=== PATIENT | female | born 1945 | race Caucasian/White ===

== ENCOUNTER → 2017-06-07 | Outpatient (CLI) | payer MEDICARE | LOC: M WHC 10:25 | DX: Z12.31 Encounter for screening mammogram for malignant neoplasm of breast (principal); Z78.0 Asymptomatic menopausal state; Z80.3 Family history of malignant neoplasm of breast | CPT/HCPCS: 77067 ==

== ENCOUNTER → 2018-02-15 | Outpatient (CLI) | payer MEDICARE ==
[2018-02-15 15:10] LABS: ALBUMIN 3.6 GM/DL (3.2-5.2); ALBUMIN/GLOBULIN RATIO 0.92 (1.00-1.93); ALKALINE PHOSPHATASE 114 U/L (45-117); ALT/SGPT 171 U/L (12-78); AST/SGOT 112 U/L (7-37); BILIRUBIN,DIRECT 0.2 MG/DL (0.0-0.2); BILIRUBIN,TOTAL 0.5 MG/DL (0.2-1.0); FERRITIN 166 NG/ML (8-252); HEPATITIS B SURFACE ANTIBODY NEGATIVE (POSITIVE); HEPATITIS B SURFACE ANTIGEN NEGATIVE (NEGATIVE); IRON (FE) 72 UG/DL (50-170); PERCENT SATURATION 19.8 % (13.2-45.0); TOTAL IRON BINDING CAPACITY 363 UG/DL (250-450); TOTAL PROTEIN 7.5 GM/DL (6.4-8.2)
[2018-02-15 15:10] LABS: HEPATITIS C VIRUS ABY INDEX 0.1 INDEX (<0.8)
[2018-02-18 14:14] LABS: ALPHA 2-MACROGLOBULINS,QN 287 mg/dL (110-276); ALT (SGPT) P5P 177 IU/L (0-40); ANTI-MITOCHONDRIAL ANTIBODY 3.8 Units (0.0-20.0); ANTINUCLEAR ANTIBODIES DIRECT Negative (Negative); APOLIPOPROTEIN A-1 181 mg/dL (116-209); AST (SGOT) P5P 133 IU/L (0-40); BILIRUBIN, TOTAL 0.4 mg/dL (0.0-1.2); CHOLESTEROL TOTAL 233 mg/dL (100-199); FIBROSIS SCORE 0.32 (0.00-0.21); FIBROSIS STAGE F1-F2 (.); GGT 39 IU/L (0-60); GLUCOSE, SERUM 95 mg/dL (65-99); HAPTOGLOBIN 152 mg/dL (34-200); HEIGHT 61 in (.); HEPATITIS A IgG TOTAL Positive (Negative); LIVER-KIDNEY MICROSOMAL ABY 1.4 Units (0.0-20.0); NASH SCORE 0.75 (0.25); TRIGLYCERIDES 121 mg/dL (0-149); WEIGHT 200 LBS (.)
[2018-02-18 14:14] LABS: ANTI-SMOOTH MUSCLE ANTIBODY 20 Units (0-19)
== END ==
LOC: M LAB 12:11
DX: R93.3 Abnormal findings on diagnostic imaging of other parts of digestive tract (principal)
CPT/HCPCS: 83010

== ENCOUNTER 2018-03-21 07:14 | Day surgery (SDC) | payer MEDICARE ==
[~2018-03-21] VITALS: Ht 154.9 cm; Wt 90.3 kg
[~2018-03-21 07:14] MED LIST: GABA-843 PO; LOSA25TA14 PO; NS 1,000 ML IV ONE; PANT40TA3 PO; STOO100C PO; SUCR1SUS PO; SYNT100T PO; TIZA4CAP PO; VITA100066 PO
[2018-03-21] MEDS ORDERED: LIDOCAINE 2% INJ 100 MG/5 ML SDV (FOR ANES.) As Ordered ONE (07:59)
[2018-03-21] MEDS ORDERED: PROPOFOL 200 MG/20 ML VIAL As Ordered ONE ×2 (07:59→09:07)
[2018-03-21] MEDS ORDERED: fentaNYL 100 MCG/2 ML INJECTION (J3010) As Ordered ONE (08:00)
--- NOTE | 2018-03-21 09:28 | ROOR ---
Patient Name: Marianne Duke Procedure Date: 03/21/2018 8:17 AM Date of : 1945 Age: 72 Room: [facility] Gender: Female Note Status: Finalized Procedure: Upper GI endoscopy Indications: Abnormal UGI series Providers: Fabricio Lambert MD Referring MD: TRUE MORELAND NP Requesting Provider: Medicines: Monitored Anesthesia Care Complications: No immediate complications. Procedure: Pre-Anesthesia Assessment: - Prior to the procedure, a History and Physical was performed, and patient medications and allergies were reviewed. The patient is competent. The risks and benefits of the procedure and the sedation options and risks were discussed with the patient. All questions were answered and informed consent was obtained. Patient identification and proposed procedure were verified by the physician, the nurse and the anesthesiologist in the procedure room. Mental Status Examination: alert and oriented. Airway Examination: normal oropharyngeal airway and neck mobility. Respiratory Examination: clear to auscultation. CV Examination: normal. Prophylactic Antibiotics: The patient does not require prophylactic antibiotics. Prior Anticoagulants: The patient has taken no previous anticoagulant or antiplatelet agents. ASA Grade Assessment: III - A patient with severe systemic disease. After reviewing the risks and benefits, the patient was deemed in satisfactory condition to undergo the procedure. The anesthesia plan was to use monitored anesthesia care (MAC). Immediately prior to administration of medications, the patient was re-assessed for adequacy to receive sedatives. The heart rate, respiratory rate, oxygen saturations, blood pressure, adequacy of pulmonary ventilation, and response to care were monitored throughout the procedure. The physical status of the patient was re-assessed after the procedure. The Endoscope was introduced through the mouth, and advanced to the fourth part of duodenum. The upper GI endoscopy was accomplished without difficulty. The patient tolerated the procedure well. Findings: LA Grade A (one or more mucosal breaks less than 5 mm, not extending between tops of 2 mucosal folds) esophagitis with no bleeding was found in the distal esophagus. Biopsies were taken with a cold forceps for histology. Verification of patient identification for the specimen was done by the physician and nurse using the patient's name, date and medical record number. Estimated blood loss was minimal. The Z-line was irregular and was found 36 cm from the incisors. One 15 mm submucosal papule (nodule) with no bleeding and no stigmata of recent bleeding was found in the gastric antrum. Biopsies were taken with a cold forceps for histology. Diffuse mild inflammation characterized by erythema and granularity was found in the gastric antrum. Biopsies were taken with a cold forceps for histology. The duodenal bulb and second portion of the duodenum were normal. Biopsies for histology were taken with a cold forceps for evaluation of celiac disease. Impression: - LA Grade A reflux esophagitis. Biopsied. - Z-line irregular, 36 cm from the incisors. - One submucosal papule (nodule) found in the stomach. Biopsied. - Gastritis. Biopsied. - Normal duodenal bulb and second portion of the duodenum. Biopsied. Recommendation: - Patient has a contact number available for emergencies. The signs and symptoms of potential delayed complications were discussed with the patient. Return to normal activities tomorrow. Written discharge instructions were provided to the patient. - Resume previous diet. - Continue present medications. - Await pathology results. - Follow an antireflux regimen. - Perform an upper endoscopic ultrasound (UEUS) at appointment to be scheduled. - Based on the biopsy results you will receive a phone call from GI clinic in 2-3 weeks to review the pathology results AND/OR your results will be faxed to your Primary care physician. - Return to primary care physician. Fabricio Lambert MD Fabricio Lambert MD 03/21/2018 9:27:42 AM This report has been signed electronically. Number of Addenda: 0 Note Initiated On: 03/21/2018 8:17 AM Estimated Blood Loss: Estimated blood loss was minimal.
[2018-03-21 09:40] VITALS: BP 137/79
--- NOTE | 2018-03-21 10:19 | ROOR ---
Patient Name: Marianne Duke Procedure Date: 03/21/2018 8:18 AM Date of : 1945 Age: 72 Room: [facility] Gender: Female Note Status: Finalized Procedure: Colonoscopy Indications: Screening for colorectal malignant neoplasm Providers: Fabricio Lambert MD Referring MD: TRUE MORELAND NP Requesting Provider: Medicines: Monitored Anesthesia Care Complications: No immediate complications. Procedure: Pre-Anesthesia Assessment: - Prior to the procedure, a History and Physical was performed, and patient medications and allergies were reviewed. The patient is competent. The risks and benefits of the procedure and the sedation options and risks were discussed with the patient. All questions were answered and informed consent was obtained. Patient identification and proposed procedure were verified by the physician, the nurse and the anesthesiologist in the procedure room. Mental Status Examination: alert and oriented. Airway Examination: normal oropharyngeal airway and neck mobility. Respiratory Examination: clear to auscultation. CV Examination: normal. Prophylactic Antibiotics: The patient does not require prophylactic antibiotics. Prior Anticoagulants: The patient has taken no previous anticoagulant or antiplatelet agents. ASA Grade Assessment: III - A patient with severe systemic disease. After reviewing the risks and benefits, the patient was deemed in satisfactory condition to undergo the procedure. The anesthesia plan was to use monitored anesthesia care (MAC). Immediately prior to administration of medications, the patient was re-assessed for adequacy to receive sedatives. The heart rate, respiratory rate, oxygen saturations, blood pressure, adequacy of pulmonary ventilation, and response to care were monitored throughout the procedure. The physical status of the patient was re-assessed after the procedure. The Colonoscope was introduced through the anus and advanced to the terminal ileum, with identification of the appendiceal orifice and IC valve. The colonoscopy was performed without difficulty. The patient tolerated the procedure well. The quality of the bowel preparation was good. The terminal ileum, ileocecal valve, appendiceal orifice, and rectum were photographed. Scope insertion time was 3 minutes. Scope withdrawal time was 16 minutes. The total duration of the procedure was 20 minutes. Findings: The perianal and digital rectal examinations were normal. The terminal ileum appeared normal. A 4 mm polyp was found in the ascending colon. The polyp was sessile. The polyp was removed with a cold biopsy forceps. Resection and retrieval were complete. Verification of patient identification for the specimen was done by the physician and nurse using the patient's name, date and medical record number. Estimated blood loss was minimal. Two carpet-like and sessile polyps were found in the transverse colon. The polyps were 15 to 20 mm in size. These polyps were removed with a hot snare. Resection and retrieval were complete. To close a defect after polypectomy, four hemostatic clips were successfully placed. There was no bleeding at the end of the procedure. Two sessile polyps were found in the recto-sigmoid colon. The polyps were 4 to 6 mm in size. These polyps were removed with a cold snare. Resection and retrieval were complete. Non-bleeding external and internal hemorrhoids were found during retroflexion. The hemorrhoids were medium-sized. Multiple small and large-mouthed diverticula were found in the sigmoid colon. There was no evidence of diverticular bleeding. Impression: - The examined portion of the ileum was normal. - One 4 mm polyp in the ascending colon, removed with a cold biopsy forceps. Resected and retrieved. - Two 15 to 20 mm polyps in the transverse colon, removed with a hot snare. Resected and retrieved. Clips were placed. - Two 4 to 6 mm polyps at the recto-sigmoid colon, removed with a cold snare. Resected and retrieved. - Non-bleeding external and internal hemorrhoids. - Moderate diverticulosis in the sigmoid colon. There was no evidence of diverticular bleeding. Recommendation: - Patient has a contact number available for emergencies. The signs and symptoms of potential delayed complications were discussed with the patient. Return to normal activities tomorrow. Written discharge instructions were provided to the patient. - High fiber diet. - Continue present medications. - Await pathology results. - Repeat colonoscopy in 1 year for surveillance based on pathology results. - Based on the biopsy results you will receive a phone call from GI clinic in 2-3 weeks to review the pathology results AND/OR your results will be faxed to your Primary care physician. - Return to primary care physician. Fabricio Lambert MD Fabricio Lambert MD 03/21/2018 10:18:55 AM This report has been signed electronically. Number of Addenda: 0 Note Initiated On: 03/21/2018 8:18 AM Estimated Blood Loss: Estimated blood loss was minimal.
== END 2018-03-21 09:54 | disposition home or self-care (01) ==
LOC: M OPP 07:14
PROVIDERS: ATTEND Internal Medicine Gastroenterology
DX: Z12.11 Encounter for screening for malignant neoplasm of colon (principal); R93.3 Abnormal findings on diagnostic imaging of other parts of digestive tract; D12.3 Benign neoplasm of transverse colon; D12.2 Benign neoplasm of ascending colon; K63.5 Polyp of colon; K64.8 Other hemorrhoids; K57.30 Diverticulosis of large intestine without perforation or abscess without bleeding; K21.0 Gastro-esophageal reflux disease with esophagitis; K22.8 Other specified diseases of esophagus; K29.70 Gastritis, unspecified, without bleeding; I10 Essential (primary) hypertension; E03.9 Hypothyroidism, unspecified; Z80.0 Family history of malignant neoplasm of digestive organs; Z79.899 Other long term (current) drug therapy; Z88.0 Allergy status to penicillin; Z88.5 Allergy status to narcotic agent
CPT/HCPCS: 43239; 45380; 45385; 88305; J3010

== ENCOUNTER → 2018-06-14 | Outpatient (CLI) | payer MEDICARE ==
[~2018-06-14] MED LIST changes: -NS 1,000 ML IV ONE
[2018-06-14 18:06] LABS: THYROID STIMULATING HORMONE 3.47 uIU/ML (0.358-3.740)
--- NOTE | 2018-06-15 07:21 | REP ---
Right hand four views: There are no comparisons. There is PIP and DIP joint space narrowing compatible with early osteoarthritic change. Mineralization is normal. The MCP articulations and carpal articulations are unremarkable. There is no fracture or dislocation. Impression: Osteoarthritic changes as described. Left hand four views: There is joint space narrowing of the PIP and DIP articulations. This is compatible with early osteoarthritic change. The MCP articulations and carpal articulations are unremarkable. There is no fracture or dislocation. Mineralization is normal. Impression: Osteoarthritic changes as described. Electronically Signed by Chriss French MD 06/15/2018 07:12 A
== END ==
LOC: M WUC 15:31
PROVIDERS: ATTEND Internal Medicine Rheumatology
DX: M19.041 Primary osteoarthritis, right hand (principal); M19.042 Primary osteoarthritis, left hand
CPT/HCPCS: 36415; 73130; 82550; 84443; 86200; G0463

== ENCOUNTER → 2022-01-21 | Outpatient (CLI) | payer MEDICARE ==
[~2022-01-21] MED LIST changes: +AMLO1TAB24 PO; +CLAR10CA3 PO; +CO Q200C10 PO; +COQ1200C3 PO; +GABA-282 PO; -GABA-843 PO; +GABA600T4 PO; +HYDR-3910 PO; +LOSA25TA13 PO; -LOSA25TA14 PO; +MM S100C PO; +PANT40TA29 PO; -PANT40TA3 PO; +PRAV40TA2 PO; +PROP20TA72 PO; -STOO100C PO; +SUCR1ORA PO; -SUCR1SUS PO; +VITA100093 PO; +VITA500T41 PO
== END ==
LOC: M LABSMTC 11:15
PROVIDERS: ATTEND Anesthesiology
DX: Z01.812 Encounter for preprocedural laboratory examination (principal); Z11.52 Encounter for screening for COVID-19

== ENCOUNTER 2022-01-26 09:08 | Day surgery (SDC) | payer MEDICARE ==
[~2022-01-26] VITALS: Ht 154.9 cm; Wt 88.5 kg
[~2022-01-26 09:08] MED LIST changes: +NS 1,000 ML IV ONE
[2022-01-26] MEDS ORDERED: propofoL 200 MG/20 ML VIAL As Ordered ONE (10:25)
[2022-01-26] MEDS ORDERED: LIDOCAINE 2% INJ 100 MG/5 ML SYRINGE As Ordered ONE ×2 (10:26→10:27)
[2022-01-26 11:25] VITALS: BP 130/89
== END 2022-01-26 11:44 | disposition home or self-care (01) ==
LOC: M OPP 09:08
PROVIDERS: ATTEND Internal Medicine Gastroenterology
DX: Z86.010 Personal history of colon polyps (principal); D12.6 Benign neoplasm of colon, unspecified; K57.30 Diverticulosis of large intestine without perforation or abscess without bleeding; K64.8 Other hemorrhoids; I10 Essential (primary) hypertension; E78.5 Hyperlipidemia, unspecified; E03.9 Hypothyroidism, unspecified; M19.90 Unspecified osteoarthritis, unspecified site; Z87.891 Personal history of nicotine dependence; Z88.0 Allergy status to penicillin; Z88.8 Allergy status to other drugs, medicaments and biological substances; Z79.890 Hormone replacement therapy; Z79.899 Other long term (current) drug therapy

== ENCOUNTER → 2024-02-23 | Outpatient (REF) | payer MEDICARE ==
[~2024-02-23] MED LIST changes: +GABA-1172 PO; +GABA-1490 PO; -GABA-282 PO; -GABA600T4 PO; -HYDR-3910 PO; +HYDR25TA87 PO; -NS 1,000 ML IV ONE
== END ==
LOC: M LAB REF 17:13
PROVIDERS: ATTEND Physician Assistant
DX: D22.39 Melanocytic nevi of other parts of face (principal)